=== PATIENT | female | born 1940 | race Caucasian/White ===

== ENCOUNTER 2016-08-30 13:26 | Emergency (ER) | payer MEDICARE, MEDICAID | END 2016-08-30 15:25 | disposition home or self-care (01) | LOC: ER 13:26 | DX: S30.0XXA Contusion of lower back and pelvis, initial encounter (principal); Z76.0 Encounter for issue of repeat prescription; Z79.899 Other long term (current) drug therapy; Z79.82 Long term (current) use of aspirin; K21.9 Gastro-esophageal reflux disease without esophagitis; E78.00 Pure hypercholesterolemia, unspecified; F32.9 Major depressive disorder, single episode, unspecified; F41.1 Generalized anxiety disorder | CPT/HCPCS: 72170; 72220 ==